=== PATIENT | female | born 1990 | race Caucasian/White ===

== ENCOUNTER 2016-12-23 10:52 | Emergency (ER) | payer BC ==
[2016-12-23 12:16] VITALS: BP 110/73
[2016-12-23] MEDS ORDERED: GI Cocktail Oral Solution 30 ML PO ONE (12:40)
[2016-12-23] MEDS ORDERED: Penicillin G Benzathine/Procaine 600-600 1.2 Millunits/2 ML Syringe IM ONE (12:41)
--- NOTE | 2016-12-23 12:42 | EDM.PDOC ---
ED HPI GENERAL MEDICAL PROBLEM - General Chief Complaint: ENT Problem Stated Complaint: cold [id number] Time Seen by Provider: 12/23/16 12:37 History Limitations: Reports: No Limitations - History of Present Illness INITIAL COMMENTS - FREE TEXT/NARRATIVE: Sore throat w/ bodyaches and fever X 2 days Onset Date: 12/20/16 Onset Time: 12:00 Duration: Day(s):, Getting Worse Location: Reports: Other (throat) Quality: Reports: Ache Severity: Moderate Context: Reports: Other (sore throat) Throat Pain Score (Numeric/FACES): 5 - Related Data Allergies Allergy/AdvReac Type Severity Reaction Status Date / Time No Known Allergies Allergy Verified 12/23/16 12:05 Home Meds: Home Meds Hydrocodone/Acetaminophen [Hydrocodon-Acetaminophn 10-325] 1 tab PO ASDIRECTED PRN 12/23/16 [History] Past Medical History HEENT History: Reports: None Cardiovascular History: Reports: None Respiratory History: Reports: None Gastrointestinal History: Reports: None Genitourinary History: Reports: Other (See Below) Other Genitourinary History: End Stage Intersitial Cystitis 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 Neurological History: Reports: None Psychiatric History: Reports: None Endocrine/Metabolic History: Reports: None Oncologic (Cancer) History: Reports: None Dermatologic History: Reports: None Social & Family History - Tobacco Use Smoking Status *Q: Never Smoker Second Hand Smoke Exposure: No - Caffeine Use Caffeine Use: Reports: None - Recreational Drug Use Recreational Drug Use: No ED ROS ENT - Review of Systems Review Of Systems: See Below Constitutional: Reports: No Symptoms HEENT: Reports: Throat Pain Respiratory: Reports: No Symptoms Cardiovascular: Reports: No Symptoms Endocrine: Reports: No Symptoms GI/Abdominal: Reports: No Symptoms : Reports: No Symptoms Musculoskeletal: Reports: Muscle Pain Skin: Reports: No Symptoms Neurological: Reports: No Symptoms Psychiatric: Reports: No Symptoms Hematologic/Lymphatic: Reports: No Symptoms Immunologic: Reports: No Symptoms ED EXAM, ENT - Physical Exam Exam: See Below Exam Limited By: No Limitations General Appearance: Alert, WD/WN, No Apparent Distress Eye Exam: Bilateral Eye: EOMI, PERRL Ears: Normal External Exam Nose: Normal Inspection Mouth/Throat: Tonsillar Erythema, Tonsillar Exudates Head: Atraumatic Neck: Normal Inspection, Lymphadenopathy (L), Lymphadenopathy (R) Respiratory/Chest: No Respiratory Distress, Lungs Clear Cardiovascular: Normal Peripheral Pulses, Regular Rate, Rhythm, No Edema GI/Abdominal: Normal Bowel Sounds, Soft, Non-Tender Back: Normal Inspection, Full Range of Motion Extremities: Normal Inspection, Normal Range of Motion, Non-Tender Neurological: Alert, Oriented, CN II-XII Intact Psychiatric: Normal Affect, Normal Mood Skin: Warm, Dry, Intact Lymphatic: Adenopathy (anterior cervical) Course - Vital Signs Last Recorded V/S: Last Vital Signs Temp 37.2 C 12/23/16 11:58 Pulse 88 12/23/16 11:58 Resp 16 12/23/16 11:58 BP 110/73 12/23/16 11:58 Pulse Ox 100 12/23/16 11:58 Departure - Departure Time of Disposition: 12:44 Disposition: Home, Self-Care 01 Condition: Good Clinical Impression: Tonsillitis - Discharge Information Forms: ED Department Discharge Additional Instructions: Rest and increase fluids Take Tylenol 500mg Q 4-6 hours for fever and bdyaches F/U w/ PCP
== END 2016-12-23 13:08 | disposition home or self-care (01) ==
LOC: DL.ED 10:52
DX: J03.90 Acute tonsillitis, unspecified (principal)
CPT/HCPCS: 87430; 96372; 99283; A9270; J0558

== ENCOUNTER 2018-02-13 18:30 | Emergency (ER) | payer MEDICARE, BC ==
[2018-02-13] MEDS ORDERED: LORazepam 1 MG Tab PO ONE (18:31)
[2018-02-13 18:53] VITALS: BP 120/90
[2018-02-13] MEDS ORDERED: HYDROmorphone 1 MG/ML Syringe IVPUSH ONE ×3 (19:24→22:50)
[2018-02-13] MEDS ORDERED: Ondansetron 4 MG/2 ML SDV IV ONE (19:24)
[2018-02-13 20:06] LABS: ANION GAP 14.9; CHLORIDE,CL 102 mmol/L (101-111); SODIUM,NA 136 mmol/L (135-145)
--- NOTE | 2018-02-13 20:45 | EDM.PDOC ---
"ED HPI GENERAL MEDICAL PROBLEM - General Chief Complaint: Back Pain or Injury Stated Complaint: BACK HURTS [id number] Time Seen by Provider: 02/13/18 19:05 Source of Information: Reports: Patient, RN History Limitations: Reports: No Limitations - History of Present Illness INITIAL COMMENTS - FREE TEXT/NARRATIVE: ED iwth c/o severe low back pain radiating down out side of both legs to ankles describes as sharp electric shock type and pelvic discomfort. Hx interstial cystitis and unable to determine if pain from that but notes feels different. hx 4 back surgeries in last 3 months with most recent on to remove pain pump. Stated pain pump initially placed to aid in alleviate pelvic floor pain. Complications with pump leaking and malfunctioning. Pain worsening this am around 11. Tried oxycodone at home and pain not eased. Had not tried to contact surgeons office today due to lateness in day when pain most severe at 4pm today. Patient ambulating with stooped gait and tearful. Denied any loss or change in sensation. Small BM today, pain present prior but increased after straining. Normal urinary frequency. . Denied fever or chills. 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 Musculoskeletal History: Reports: Back Pain, Chronic Neurological History: Reports: None Psychiatric History: Reports: None Endocrine/Metabolic History: Reports: None Hematologic History: Reports: Other (See Below) Other Hematologic History: autoimmune disorder Oncologic (Cancer) History: Reports: None Dermatologic History: Reports: None - Past Surgical History Musculoskeletal Surgical History: Reports: Other (See Below) Other Musculoskeletal Surgeries/Procedures:: 4 back surgeries Social & Family History - Family History Family Medical History: Noncontributory - Tobacco Use Smoking Status *Q: Never Smoker Second Hand Smoke Exposure: No - Caffeine Use Caffeine Use: Reports: None - Recreational Drug Use Recreational Drug Use: No ED ROS GENERAL - Review of Systems Review Of Systems: ROS reveals no pertinent complaints other than HPI. ED EXAM,LOWER BACK PAIN/INJURY - Physical Exam Exam: See Below Exam Limited By: No Limitations General Appearance: Alert, Moderate Distress Eye Exam: Bilateral Eye: EOMI Ears: Normal External Exam Nose: Normal Inspection Throat/Mouth: Normal Inspection Head: Atraumatic, Normocephalic Neck: Normal Inspection, Full Range of Motion Respiratory/Chest: No Respiratory Distress, Lungs Clear, Normal Breath Sounds Cardiovascular: Normal Peripheral Pulses, Regular Rate, Rhythm GI/Abdominal: Normal Bowel Sounds, Soft. No: Tender Back Exam: Paraspinal Tenderness (mild around left lateral incision), Vertebral Tenderness (surrounding surgical incision low lumbar) Extremities: Normal Inspection, Normal Range of Motion, Leg Pain (with weight bearing ). No: Pedal Edema, Pallor, Redness Neurological: Alert. No: Abnormal Sensation, Saddle Anesthesia Psychiatric: Anxious, Tearful Skin Exam: Warm, Dry, Normal Color (surigical incisions with kylah left lateral back and midline low lumbar intact no redness or warmth, very slight swelling to lmid left of lumbar midline incision. when lying on right side, ), Wound/Incision Course - Vital Signs Last Recorded V/S: Last Vital Signs Temp 99.0 F 02/13/18 18:50 Pulse 110 H 02/13/18 18:50 Resp 18 02/13/18 18:50 BP 120/90 02/13/18 18:50 Pulse Ox 99 02/13/18 18:50 - Orders/Labs/Meds Orders: Active Orders 24 hr Category Date Time Status CULTURE BLOOD [BC] Stat Lab 02/13/18 19:35 Received Labs: Laboratory Tests 02/13/18 02/13/18 02/13/18 Range/Units 19:35 19:35 19:35 WBC 10.4 H (5.0-10.0) 10^3/uL RBC 4.11 L (4.2-5.4) 10^6/uL Hgb 13.0 (12.0-16.0) g/dL Hct 38.9 (37.0-47.0) % MCV 94.6 (80-100) fL MCH 31.6 (27.0-34.0) pg MCHC 33.4 (33.0-35.0) g/dL Plt Count 408 (150-450) 10^3/uL Neut % (Auto) 58.2 (42.2-75.2) % Lymph % (Auto) 31.4 (20.5-50.1) % [place] % (Auto) 9.0 H (2-8) % Eos % (Auto) 1.2 (1.0-3.0) % Baso % (Auto) 0.2 (0.0-1.0) % Sodium 136 (135-145) mmol/L Potassium 3.9 (3.6-5.0) mmol/L Chloride 102 (101-111) mmol/L Carbon Dioxide 23.0 (21.0-31.0) mmol/L Anion Gap 14.9 BUN 14 (7-18) mg/dL Creatinine 0.6 (0.6-1.3) mg/dL Est Cr Clr Drug Dosing 144.94 mL/min Estimated GFR (MDRD) > 60 BUN/Creatinine Ratio 23.33 Glucose 107 H (74-105) mg/dL Lactic Acid 1.8 (0.5-2.2) mmol/L Calcium 9.4 (8.4-10.2) mg/dl Total Bilirubin 0.6 (0.2-1.0) mg/dL AST 19 (10-42) IU/L ALT 11 (10-60) IU/L Alkaline Phosphatase 54 (42-121) IU/L C-Reactive Protein (0.0-1.3) mg/dL Total Protein 7.8 (6.7-8.2) g/dl Albumin 4.5 (3.2-5.5) g/dl Globulin 3.3 Albumin/Globulin Ratio 1.36 HCG, Qual Negative Urine Color (YELLOW) Urine Appearance (CLEAR) Urine pH (5.0-9.0) Ur Specific [place] (1.005-1.030) Urine Protein (NEGATIVE) Urine Glucose (UA) (NEGATIVE) Urine Ketones (NEGATIVE) Urine Occult Blood (NEGATIVE) Urine Nitrite (NEGATIVE) Urine Bilirubin (NEGATIVE) Urine Urobilinogen (0.2-1.0) mg/dL Ur Leukocyte Esterase (NEGATIVE) Urine RBC /HPF Urine WBC (0-5/HPF) /HPF Ur Epithelial Cells /HPF Amorphous Sediment (0/HPF) /HPF Urine Bacteria (0-FEW/HPF) /HPF Urine Mucus /LPF 02/13/18 02/13/18 Range/Units 19:35 20:00 WBC (5.0-10.0) 10^3/uL RBC (4.2-5.4) 10^6/uL Hgb (12.0-16.0) g/dL Hct (37.0-47.0) % MCV (80-100) fL MCH (27.0-34.0) pg MCHC (33.0-35.0) g/dL Plt Count (150-450) 10^3/uL Neut % (Auto) (42.2-75.2) % Lymph % (Auto) (20.5-50.1) % [place] % (Auto) (2-8) % Eos % (Auto) (1.0-3.0) % Baso % (Auto) (0.0-1.0) % Sodium (135-145) mmol/L Potassium (3.6-5.0) mmol/L Chloride (101-111) mmol/L Carbon Dioxide (21.0-31.0) mmol/L Anion Gap BUN (7-18) mg/dL Creatinine (0.6-1.3) mg/dL Est Cr Clr Drug Dosing mL/min Estimated GFR (MDRD) BUN/Creatinine Ratio Glucose (74-105) mg/dL Lactic Acid (0.5-2.2) mmol/L Calcium (8.4-10.2) mg/dl Total Bilirubin (0.2-1.0) mg/dL AST (10-42) IU/L ALT (10-60) IU/L Alkaline Phosphatase (42-121) IU/L C-Reactive Protein 0.7 (0.0-1.3) mg/dL Total Protein (6.7-8.2) g/dl Albumin (3.2-5.5) g/dl Globulin Albumin/Globulin Ratio HCG, Qual Urine Color Yellow (YELLOW) Urine Appearance Slightly cloudy (CLEAR) Urine pH 6.0 (5.0-9.0) Ur Specific [place] 1.015 (1.005-1.030) Urine Protein Negative (NEGATIVE) Urine Glucose (UA) Negative (NEGATIVE) Urine Ketones Negative (NEGATIVE) Urine Occult Blood Negative (NEGATIVE) Urine Nitrite Negative (NEGATIVE) Urine Bilirubin Negative (NEGATIVE) Urine Urobilinogen 0.2 (0.2-1.0) mg/dL Ur Leukocyte Esterase Negative (NEGATIVE) Urine RBC 0-5 /HPF Urine WBC 0-5 (0-5/HPF) /HPF Ur Epithelial Cells Moderate H /HPF Amorphous Sediment Rare (0/HPF) /HPF Urine Bacteria Occasional (0-FEW/HPF) /HPF Urine Mucus Rare /LPF Meds: Medications Discontinued Medications Generic Name Dose Route Start Last Admin Trade Name Freq PRN Reason Stop Dose Admin Hydromorphone HCl 1 mg 02/13/18 19:24 02/13/18 19:38 Dilaudid IVPUSH 02/13/18 19:25 1 mg ONETIME ONE Administration Hydromorphone HCl 1 mg 02/13/18 20:08 02/13/18 20:12 Dilaudid IVPUSH 02/13/18 20:09 1 mg ONETIME ONE Administration Hydromorphone HCl 1 mg 02/13/18 22:50 02/13/18 22:56 Dilaudid IVPUSH 02/13/18 22:51 1 mg ONETIME ONE Administration Iopamidol 75 ml 02/13/18 20:50 02/13/18 21:35 Isovue-300 (61%) IVPUSH 02/13/18 20:51 75 ml ONETIME ONE Administration Lorazepam Confirm 02/13/18 22:52 02/13/18 22:56 Ativan Administered 02/13/18 22:53 Not Given Dose 2 mg .ROUTE .STK-MED ONE Ondansetron HCl 4 mg 02/13/18 19:24 02/13/18 19:38 Zofran IV 02/13/18 19:25 4 mg ONETIME ONE Administration - Radiology Interpretation Free Text/Narrative:: Name: JASON OLVERA Age: 27Years F Date: 02/13/2018 SSN: -- : 1990 Study: CT SPINE LUMBAR WO Requesting Physician: CANDELARIA REA Images: [id number] Addl Studies: Provided Clinical History: Contrast: Without Contrast Medium: Contrast Amount: Contrast Method: Page 1 of 2 EXAM: CT Lumbar Spine Without Intravenous Contrast EXAM DATE/TIME: 02/13/2018 9:03 PM CLINICAL HISTORY: 27 years old, female; Pain; Low back pain; Patient HX: Pt has pain down both legs after having pain management machine removed last week TECHNIQUE: Axial computed tomography images of the lumbar spine without intravenous contrast. All CT scans at this facility use at least one of these dose optimization techniques: automated exposure control; mA and/or kV adjustment per patient size (includes targeted exams where dose is matched to clinical indication); or iterative reconstruction. Coronal and sagittal reformatted images were created and reviewed. COMPARISON: No relevant prior studies available. FINDINGS: Vertebrae: Unremarkable. No acute fracture. Discs/spinal canal/neural foramina: Mild posterior disc bulges are seen at L4- L5 and L5-S1 without significant central canal stenosis or neuroforaminal narrowing. Soft tissues: A subcutaneous cavity is seen within the left posterior flank status post device removal. There is no significant associated fluid collection. An overlying skin staple is in place. A skin staple line is also present posteriorly at the lumbosacral region. Beneath this staple line, there is a rimenhancing subcutaneous fluid collection measuring 1.8 cm in diameter and 5.6 cm in length. IMPRESSION: 1. No evidence of acute lumbar injury. JASON OLVERA | Final Radiology Report CONFIDENTIALITY STATEMENT This report is intended only for use by the referring physician, and only in accordance with law. If you received this in error, call [phone]. Page 2 of 2 2. Staple lines are present posteriorly over the sacrum and within the left posterior flank. Beneath the vertical sacral staple line, there is a rim-enhancing fluid collection measuring 1.8 cm in diameter and 5.6 cm in length. Appearance is consistent with postoperative seroma versus developing abscess. 3. Mild posterior disc bulges at L4-L5 and L5-S1 without significant central canal stenosis or neuroforaminal narrowing. 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 Thank you for allowing us to participate in the care of your patient. Dictated and Authenticated by: Jean Shipley MD 02/13/2018 10:23 PM Central Time ([place] & [place] Name: JASON OLVERA Age: 27Years F Date: 02/13/2018 SSN: -- : 1990 Study: CT ABDOMEN/PELVIS W Requesting Physician: CANDELARIA REA Images: [id number] Addl Studies: Provided Clinical History: Contrast: With Contrast Medium: isovue 300 Contrast Amount: 75 mL Contrast Method: lt ac Page 1 of 2 Addendum created by Jean Shipley MD on 02/13/2018 10:23 PM Central Time ([place] & [place]) Results discussed with CANDELARIA Nicholson at 02/13/2018 10:23 PM TO[employer] C[employer]TER [employer]. Addendum created by Jean Shipley MD on 02/13/2018 10:16 PM Central Time ([place]) Addendum: There is an additional staple line within the posterior midline at the level of the sacrum. Beneath this staple line there is a rim-enhancing subcutaneous fluid collection measuring 1.8 cm in diameter and 5.6 cm superior-inferior. This may represent a postoperative fluid collection or abscess. Initial Report created on 02/13/2018 10:12 PM Central Time ([place] & [place]) EXAM: CT Abdomen and Pelvis With Intravenous Contrast EXAM DATE/TIME: 02/13/2018 9:03 PM CLINICAL HISTORY: 27 years old, female; Pain; Other: Pelvic; Patient HX: Pt had pain management removed from her lspine last week. Has lower abd/pelvic pain in back TECHNIQUE: Axial computed tomography images of the abdomen and pelvis with intravenous contrast. All CT scans at this facility use at least one of these dose optimization techniques: automated exposure control; mA and/or kV adjustment per patient size (includes targeted exams where dose is matched to clinical indication); or iterative reconstruction. Coronal and sagittal reformatted images were created and reviewed. CONTRAST: MAYJASON | Final Radiology Report CONFIDENTIALITY STATEMENT This report is intended only for use by the referring physician, and only in accordance with law. If you received this in error, call [phone]. Page 2 of 2 75 mL of isovue 300 administered intravenously. COMPARISON: No relevant prior studies available. FINDINGS: Lung bases: Unremarkable. No mass. No consolidation. ABDOMEN: Liver: Unremarkable. No mass. Gallbladder and bile ducts: The patient is status post cholecystectomy. No ductal dilation. Pancreas: Unremarkable. No mass. No ductal dilation. Spleen: Unremarkable. No splenomegaly. Adrenals: Unremarkable. No mass. Kidneys and ureters: Unremarkable. No solid mass. No hydronephrosis. Stomach and bowel: Unremarkable. No obstruction. No mucosal thickening. PELVIS: Appendix: No findings to suggest acute appendicitis. Bladder: Unremarkable. No mass. Reproductive: Unremarkable as visualized. ABDOMEN and PELVIS: Intraperitoneal space: Unremarkable. No free air. No significant fluid collection. Bones/joints: No acute fracture. No dislocation. Soft tissues: Air is seen within a subcutaneous cavity within the left flank, status post device removal. No significant surrounding fluid collection. A skin staple line is in place over the cavity. There is a small, fat-containing umbilical hernia. Vasculature: Unremarkable. No abdominal aortic aneurysm. Lymph nodes: Unremarkable. No enlarged lymph nodes. IMPRESSION: 1. Status post device removal within the left posterior flank without evidence of complication. 2. No evidence of acute disease in the abdomen or pelvis. Thank you for allowing us to participate in the care of your patient. Dictated and Authenticated by: Jean Shipley MD 02/13/2018 10:12 PM Central Time ([place] & [place]) - Re-Assessments/Exams Free Text/Narrative Re-Assessment/Exam: TC Dr Hobbs outside solar sales consultant Neurosurgeon for Dr Bell [facility]. Recommendation to follow with Dr. Bell on Sunday. Patient instructed to increase oxycodone up to 15mg 4 times daily until seen on Sunday, contact surgeons office in am. ativan 0.5 to 1mg every 4 hours as needed # 2 tablets. Patient agreeable with plan. Departure - Departure Time of Disposition: 22:33 Disposition: Home, Self-Care 01 Condition: Good Clinical Impression: History of back surgery Back pain Qualifiers: Back pain location: low back pain Chronicity: acute Back pain laterality: bilateral Sciatica presence: without sciatica Qualified Code(s): M54.5 - Low back pain - Discharge Information *PRESCRIPTION DRUG MONITORING PROGRAM REVIEWED*: Yes *COPY OF PRESCRIPTION DRUG MONITORING REPORT IN PATIENT CRISSY: No Instructions: Pain Medicine Instructions, [id number] Forms: ED Department Discharge Additional Instructions: Follow up in [facility] on Sunday Contact Office in am Increase Oxycodone 15mg 4 times daily as needed for pain Miralax one capful daily increase fluid intake - My Orders Last 24 Hours: My Active Orders 02/13/18 19:35 CULTURE BLOOD [BC] Stat - Assessment/Plan Last 24 Hours: My Active Orders 02/13/18 19:35 CULTURE BLOOD [BC] Stat"
[2018-02-13] MEDS ORDERED: Iopamidol 612 MG/ML 75 ML Bottle IVPUSH ONE (20:50)
[2018-02-13] MEDS ORDERED: LORazepam 1 MG Tab ONE (22:52)
== END 2018-02-13 23:04 | disposition home or self-care (01) ==
LOC: DL.ED 18:30
DX: M54.5 Low back pain (principal)
CPT/HCPCS: 36415; 72131; 74177; 80053; 81001; 83605; 84703; 85025; 86140; 87040; 96374; 96375; 96376; 99284; A9270-GY; J1170; J2405; Q9967

== ENCOUNTER 2019-05-26 11:26 | Emergency (ER) | payer MEDICARE, BC ==
[2019-05-26 11:47] VITALS: BP 114/58; PULSE 98
[2019-05-26] MEDS ORDERED: Sodium Chloride 0.9% 1,000 ML IV ONE (12:31)
[2019-05-26] MEDS ORDERED: HYDROmorphone 1 MG/ML Syringe IVPUSH ONE (12:31)
[2019-05-26] MEDS ORDERED: Ondansetron 4 MG/2 ML SDV IV ONE (12:48)
[2019-05-26] MEDS: Sodium Chloride 0.9% 10 ML Syringe FLUSH PRN ×3 (12:56→14:07)
[2019-05-26 13:11] LABS: CHLORIDE,CL 108 mmol/L (101-111); SODIUM,NA 140 mmol/L (135-145)
[2019-05-26] MEDS ORDERED: fentaNYL 100 MCG/2 ML SDV IVPUSH ONE (13:56)
--- NOTE | 2019-05-26 14:28 | EDM.PDOC ---
ED HPI GENERAL MEDICAL PROBLEM - General Chief Complaint: Genitourinary Problem Stated Complaint: BLADDER FLARE UP Time Seen by Provider: 05/26/19 12:00 Source of Information: Reports: Patient, Family, RN, RN Notes Reviewed History Limitations: Reports: No Limitations - History of Present Illness INITIAL COMMENTS - FREE TEXT/NARRATIVE: patient presents to ER with complaint of bladder pain. Patient states she has a history of interstitial cystitis. Patient states she has been doctoring with this for the past 16 years. Patient states she sees her primary care provider, has Percocet, and oxycodone 15 IR, but these things are not cutting the pain at this time. Patient states she has had a pain pump in the past that infiltrated and caused an osteomyelitis in her back. states she does have cysts inside the bladder, and when they rupture she has severe pain. Her primary care provider was not in the office today. patient rates the pain 9/10. Onset: Gradual Duration: Constant, Getting Worse Location: Reports: Abdomen Bladder Pain Score (Numeric/FACES): 9 - Related Data Allergies Allergy/AdvReac Type Severity Reaction Status Date / Time No Known Allergies Allergy Verified 02/13/18 18:49 Home Meds: Home Meds oxyCODONE HCl [Oxycodone HCl] 15 mg PO QID PRN 02/13/18 [History] hydrOXYzine HCL [hydrOXYzine] 25 mg PO DAILY 05/26/19 [History] Past Medical History HEENT History: Reports: None Cardiovascular History: Reports: None Respiratory History: Reports: None Gastrointestinal History: Reports: None Genitourinary History: Reports: Other (See Below) Other Genitourinary History: End Stage Intersitial Cystitis FINE PATCHER History: Reports: Endometriosis, , Other (See Below) Other FINE PATCHER History: endometriosis is well controlled. Musculoskeletal History: Reports: Back Pain, Chronic Neurological History: Reports: None Psychiatric History: Reports: None Endocrine/Metabolic History: Reports: None Hematologic History: Reports: Other (See Below) Other Hematologic History: autoimmune disorder Oncologic (Cancer) History: Reports: None Dermatologic History: Reports: None - Past Surgical History Musculoskeletal Surgical History: Reports: Other (See Below) Other Musculoskeletal Surgeries/Procedures:: 4 back surgeries, 2018 spinal infection Social & Family History - Family History Family Medical History: Noncontributory - Tobacco Use Smoking Status *Q: Never Smoker - Caffeine Use Caffeine Use: Reports: None - Recreational Drug Use Recreational Drug Use: No ED ROS GENERAL - Review of Systems Review Of Systems: Comprehensive ROS is negative, except as noted in HPI. ED EXAM, RENAL/ - Physical Exam Exam: See Below Exam Limited By: No Limitations General Appearance: Alert, WD/WN, Anxious, Moderate Distress Eye Exam: Bilateral Eye: EOMI, Normal Inspection, PERRL (5, brisk) Ears: Normal External Exam, Hearing Grossly Normal Nose: Normal Inspection Throat/Mouth: Normal Inspection, Normal Voice, No Airway Compromise Head: Atraumatic, Normocephalic Neck: Normal Inspection, Supple, Non-Tender, Full Range of Motion Respiratory/Chest: No Respiratory Distress, Lungs Clear, Normal Breath Sounds, No Accessory Muscle Use, Chest Non-Tender Cardiovascular: Normal Peripheral Pulses, Regular Rate, Rhythm, No Edema, No Gallop, No JVD, No Murmur, No Rub GI/Abdominal: Normal Bowel Sounds, Soft, Tender (Female) Exam: Deferred Rectal (Female) Exam: Deferred Back Exam: Normal Inspection, Decreased Range of Motion, Other (chronic back pain) Extremities: Normal Inspection, Normal Range of Motion, Non-Tender, Normal Capillary Refill, No Pedal Edema Neurological: Alert, Oriented, CN II-XII Intact, Normal Cognition, Normal Gait, Normal Reflexes, No Motor/Sensory Deficits Psychiatric: Anxious, Tearful Skin Exam: Warm, Dry, Intact, Normal Color, No Rash Lymphatic: No Adenopathy Course - Vital Signs Last Recorded V/S: Last Vital Signs Temp 99.6 F 05/26/19 11:40 Pulse 98 05/26/19 11:40 Resp 22 H 05/26/19 11:40 BP 114/58 L 05/26/19 11:40 Pulse Ox 100 05/26/19 11:40 - Orders/Labs/Meds Labs: Laboratory Tests 05/26/19 05/26/19 05/26/19 Range/Units 12:40 12:40 12:44 WBC 9.4 (5.0-10.0) 10^3/uL RBC 4.12 L (4.2-5.4) 10^6/uL Hgb 13.4 (12.0-16.0) g/dL Hct 39.4 (37.0-47.0) % MCV 95.6 (80-100) fL MCH 32.5 (27.0-34.0) pg MCHC 34.0 (33.0-35.0) g/dL Plt Count 350 (150-450) 10^3/uL Neut % (Auto) 87.0 H (42.2-75.2) % Lymph % (Auto) 10.0 L (20.5-50.1) % [place] % (Auto) 2.9 (2-8) % Eos % (Auto) 0.0 L (1.0-3.0) % Baso % (Auto) 0.1 (0.0-1.0) % Sodium 140 (135-145) mmol/L Potassium 4.0 (3.6-5.0) mmol/L Chloride 108 (101-111) mmol/L Carbon Dioxide 20.0 L (21.0-31.0) mmol/L Anion Gap 16.0 BUN 11 (7-18) mg/dL Creatinine 0.6 (0.6-1.3) mg/dL Est Cr Clr Drug Dosing 146.28 mL/min Estimated GFR (MDRD) > 60 BUN/Creatinine Ratio 18.33 Glucose 106 H (74-105) mg/dL Calcium 9.3 (8.4-10.2) mg/dl Total Bilirubin 0.8 (0.2-1.0) mg/dL AST 22 (10-42) IU/L ALT 11 (10-60) IU/L Alkaline Phosphatase 36 L (42-121) IU/L Total Protein 7.5 (6.7-8.2) g/dl Albumin 4.5 (3.2-5.5) g/dl Globulin 3.0 Albumin/Globulin Ratio 1.50 Urine Color Yellow (YELLOW) Urine Appearance Clear (CLEAR) Urine pH 5.5 (5.0-9.0) Ur Specific [place] 1.010 (1.005-1.030) Urine Protein Negative (NEGATIVE) Urine Glucose (UA) Negative (NEGATIVE) Urine Ketones Negative (NEGATIVE) Urine Occult Blood Negative (NEGATIVE) Urine Nitrite Negative (NEGATIVE) Urine Bilirubin Negative (NEGATIVE) Urine Urobilinogen 0.2 (0.2-1.0) mg/dL Ur Leukocyte Esterase Negative (NEGATIVE) Meds: Medications Discontinued Medications Generic Name Dose Route Start Last Admin Trade Name Freq PRN Reason Stop Dose Admin Fentanyl 100 mcg 05/26/19 13:56 05/26/19 14:06 Sublimaze IVPUSH 05/26/19 13:57 100 mcg ONETIME ONE Administration Fentanyl 75 mcg 05/26/19 15:15 05/26/19 15:27 Duragesic TRDERM 75 mcg Q72H JOSESITO Administration Hydromorphone HCl 1 mg 05/26/19 12:31 05/26/19 12:54 Dilaudid IVPUSH 05/26/19 12:32 1 mg ONETIME ONE Administration Sodium Chloride 1,000 mls @ 999 mls/hr 05/26/19 12:31 05/26/19 12:54 Normal Saline IV 05/26/19 13:31 999 mls/hr .BOLUS ONE Administration Ondansetron HCl 4 mg 05/26/19 12:48 05/26/19 12:54 Zofran IV 05/26/19 12:49 4 mg ONETIME ONE Administration Sodium Chloride 10 ml 05/26/19 12:31 05/26/19 14:07 Saline Flush FLUSH 10 ml ASDIRECTED PRN Administration Keep Vein Open - Re-Assessments/Exams Free Text/Narrative Re-Assessment/Exam: 05/26/19 15:10 discussed patient case with patient's primary care provider, Aviva Owen NP. Agreed that I would prescribe a fentanyl patch today and to help the patient get through the night, and the patient will follow up with Aviva tomorrow. Departure - Departure Time of Disposition: 15:11 Disposition: Home, Self-Care 01 Condition: Fair Clinical Impression: Interstitial cystitis (chronic) without hematuria Chronic back pain Qualifiers: Back pain location: low back pain Back pain laterality: unspecified Sciatica presence: unspecified whether sciatica present Qualified Code(s): M54.5 - Low back pain - Discharge Information *PRESCRIPTION DRUG MONITORING PROGRAM REVIEWED*: No *COPY OF PRESCRIPTION DRUG MONITORING REPORT IN PATIENT CRISSY: No Instructions: Pain Medicine Instructions, [id number] Referrals: Aviav Gates NP [Primary Care Provider] - Forms: ED Department Discharge Additional Instructions: Remove fentanyl patch in 72 hours Follow-up with Aviva Owen NP tomorrow Sepsis Event Note - Evaluation Sepsis Screening Result: No Definite Risk - Focused Exam Date Exam was Performed: 06/04/19 Time Exam was Performed: 17:48
[2019-05-26] MEDS ORDERED: fentaNYL 75 MCG/HR Transdermal Patch TRDERM SCH (15:15)
== END 2019-05-26 15:35 | disposition home or self-care (01) ==
LOC: DL.ED 11:26
DX: N30.10 Interstitial cystitis (chronic) without hematuria (principal); M54.5 Low back pain
CPT/HCPCS: 36415; 80053; 81003; 85025; 96361; 96374; 96375; 99283; 99284; A9270; J1170; J2405; J3010; J7030

== ENCOUNTER 2019-06-27 13:36 | Emergency (ER) | payer MEDICARE, BC ==
--- NOTE | 2019-06-27 13:49 | EDM.PDOC ---
ED HPI GENERAL MEDICAL PROBLEM - General Chief Complaint: ENT Problem Stated Complaint: NASAL INFECTION Time Seen by Provider: 06/27/19 13:49 Source of Information: Reports: Patient, RN, RN Notes Reviewed History Limitations: Reports: No Limitations - History of Present Illness INITIAL COMMENTS - FREE TEXT/NARRATIVE: Pt presents to ER with c/o swelling in her nose with feverish sensation, and burning in the throat with tightness in her neck. The pt became very anxious due to her PMHx of complicated medical problems. She states that she went to clinic and feels that the provider did not take her concerns seriously, and "blew her off". Onset: Today Duration: Constant Location: Reports: Head, Face Quality: Reports: Burning, Pressure Severity: Moderate Improves with: Reports: None Worsens with: Reports: None Context: Reports: Sick Contact (possible) Associated Symptoms: Reports: No Other Symptoms - Related Data Allergies Allergy/AdvReac Type Severity Reaction Status Date / Time No Known Allergies Allergy Verified 06/27/19 13:56 Home Meds: Home Meds oxyCODONE HCl [Oxycodone HCl] 15 mg PO QID PRN 02/13/18 [History] hydrOXYzine HCL [hydrOXYzine] 25 mg PO DAILY 05/26/19 [History] fentaNYL [Duragesic] 75 mcg TD Q72H 06/27/19 [History] Past Medical History HEENT History: Reports: None Cardiovascular History: Reports: None Respiratory History: Reports: None Gastrointestinal History: Reports: None Genitourinary History: Reports: Other (See Below) Other Genitourinary History: End Stage Intersitial Cystitis 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 Musculoskeletal History: Reports: Back Pain, Chronic Neurological History: Reports: None Psychiatric History: Reports: None Endocrine/Metabolic History: Reports: None Hematologic History: Reports: Other (See Below) Other Hematologic History: autoimmune disorder Oncologic (Cancer) History: Reports: None Dermatologic History: Reports: None - Past Surgical History Musculoskeletal Surgical History: Reports: Other (See Below) Other Musculoskeletal Surgeries/Procedures:: 4 back surgeries, 2018 spinal infection Social & Family History - Family History Family Medical History: Noncontributory - Caffeine Use Caffeine Use: Reports: None - Living Situation & Occupation Living situation: Reports: , with Family ED ROS ENT - Review of Systems Review Of Systems: Comprehensive ROS is negative, except as noted in HPI. ED EXAM, ENT - Physical Exam Exam: See Below Exam Limited By: No Limitations General Appearance: Alert, WD/WN, No Apparent Distress, Anxious Eye Exam: Bilateral Eye: EOMI, Normal Inspection Ears: Normal External Exam, Normal Canal, Hearing Grossly Normal, Normal TMs Nose: No Blood, Nasal Discharge (Mild clear nasal mucus), Injected Turbinates Mouth/Throat: Normal Gums, Normal Lips, Normal Oropharynx, Normal Teeth, Other ( Postnasal drip) Head: Atraumatic, Normocephalic Neck: Normal Inspection, Supple, Non-Tender, Full Range of Motion. No: Lymphadenopathy (L), Lymphadenopathy (R) Respiratory/Chest: No Respiratory Distress, Lungs Clear, Normal Breath Sounds, No Accessory Muscle Use, Chest Non-Tender Cardiovascular: Regular Rate, Rhythm, Tachycardia Neurological: Alert, Oriented, CN II-XII Intact, Normal Cognition, Normal Gait, No Motor/Sensory Deficits Psychiatric: Anxious Skin: Warm, Dry, Intact, Normal Color, No Rash Course - Vital Signs Last Recorded V/S: Last Vital Signs Temp 99.7 F 06/27/19 13:51 Pulse 114 H 06/27/19 13:51 Resp 16 06/27/19 13:51 BP 125/76 06/27/19 13:51 Pulse Ox 99 06/27/19 13:51 - Orders/Labs/Meds Orders: Active Orders 24 hr Category Date Time Status Max Facial Sinus wo Cont [CT] Stat Exams 06/27/19 13:57 Taken Labs: Laboratory Tests 06/27/19 06/27/19 06/27/19 Range/Units 14:05 14:05 14:05 WBC 5.4 (5.0-10.0) 10^3/uL RBC 4.01 L (4.2-5.4) 10^6/uL Hgb 12.9 (12.0-16.0) g/dL Hct 38.3 (37.0-47.0) % MCV 95.5 (80-100) fL MCH 32.2 (27.0-34.0) pg MCHC 33.7 (33.0-35.0) g/dL Plt Count 316 (150-450) 10^3/uL Neut % (Auto) 47.5 (42.2-75.2) % Lymph % (Auto) 45.2 (20.5-50.1) % [place] % (Auto) 5.0 (2-8) % Eos % (Auto) 1.9 (1.0-3.0) % Baso % (Auto) 0.4 (0.0-1.0) % C-Reactive Protein 0.5 (0.0-1.3) mg/dL HCG, Qual Negative - Radiology Interpretation Free Text/Narrative:: CT Max/Facial/Sinus: no acute findings, see Rad. report. Departure - Departure Time of Disposition: 14:50 Disposition: Home, Self-Care 01 Condition: Good Clinical Impression: Acute rhinosinusitis - Discharge Information *PRESCRIPTION DRUG MONITORING PROGRAM REVIEWED*: Not Applicable *COPY OF PRESCRIPTION DRUG MONITORING REPORT IN PATIENT CRISSY: Not Applicable Instructions: Upper Respiratory Infection, Adult Forms: ED Department Discharge Additional Instructions: Use over the counter Afrin Nasal [place], and Claritin (Loratadine) D-24 Hour. Follow directions on package/label for dosing and precautions. Frequent saltwater gargles until improved. Use a cool mist humidifier. Follow up in clinic if not improving in a week or so as expected. Sepsis Event Note - Focused Exam Vital Signs: Vital Signs Temp Pulse Resp BP Pulse Ox 06/27/19 13:51 99.7 F 114 H 16 125/76 99 Date Exam was Performed: 06/27/19 Time Exam was Performed: 14:56 - My Orders Last 24 Hours: My Active Orders 06/27/19 13:57 Max Facial Sinus wo Cont [CT] Stat - Assessment/Plan Last 24 Hours: My Active Orders 06/27/19 13:57 Max Facial Sinus wo Cont [CT] Stat
[2019-06-27 13:56] VITALS: BP 125/76; PULSE 114
== END 2019-06-27 15:01 | disposition home or self-care (01) ==
LOC: DL.ED 13:36
DX: J01.90 Acute sinusitis, unspecified (principal)
CPT/HCPCS: 36415; 70486; 84703; 85025; 86140; 99284-25

== ENCOUNTER 2020-01-19 13:41 | Emergency (ER) | payer MEDICARE, BC ==
[2020-01-19 13:57] VITALS: BP 120/90; PULSE 115
[2020-01-19] MEDS ORDERED: Ondansetron 4 MG Tab.DIS PO ONE (13:59)
--- NOTE | 2020-01-19 14:14 | EDM.PDOC ---
ED HPI GENERAL MEDICAL PROBLEM - General Chief Complaint: Genitourinary Problem Stated Complaint: SPINAL PROBLEMS NAUSEA Time Seen by Provider: 01/19/20 13:55 Source of Information: Reports: Patient History Limitations: Reports: No Limitations - History of Present Illness INITIAL COMMENTS - FREE TEXT/NARRATIVE: This 29 yo female reports to the ED with increased back pain and nausea. The patient reports she has been dealing with chronic back pain and aches for which she has had numerous surgeries (>30), but continues to be in pain. The patient reports her Fentanyl patch fell off yesterday and the patient has not been able to reapply it. Onset: Today Duration: Constant Location: Reports: Back Quality: Reports: Ache, Stabbing Severity: Severe Improves with: Reports: None Worsens with: Reports: None Context: Reports: Other Associated Symptoms: Reports: No Other Symptoms Lower Abdomen Pain Score (Numeric/FACES): 8 - Related Data Allergies Allergy/AdvReac Type Severity Reaction Status Date / Time No Known Allergies Allergy Verified 01/19/20 13:57 Home Meds: Home Meds hydrOXYzine HCL [hydrOXYzine] 25 mg PO DAILY 05/26/19 [History] fentaNYL [Duragesic] 75 mcg TD Q72H 06/27/19 [History] Hydrocodone/Acetaminophen [Hydrocodone-Acetamin 10-325 mg] 1.5 tab PO Q6H PRN 01/19/20 [History] Levonorgestrel/Ethin.estradiol [[place]illow-28 Tablet] 1 tab PO DAILY 01/19/20 [History] Past Medical History HEENT History: Reports: None Cardiovascular History: Reports: None Respiratory History: Reports: None Gastrointestinal History: Reports: None Genitourinary History: Reports: Other (See Below) Other Genitourinary History: End Stage Intersitial Cystitis 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 Musculoskeletal History: Reports: Back Pain, Chronic Neurological History: Reports: None Psychiatric History: Reports: None Endocrine/Metabolic History: Reports: None Hematologic History: Reports: Other (See Below) Other Hematologic History: autoimmune disorder Oncologic (Cancer) History: Reports: None Dermatologic History: Reports: None - Past Surgical History Musculoskeletal Surgical History: Reports: Other (See Below) Other Musculoskeletal Surgeries/Procedures:: 4 back surgeries, 2018 spinal infection Social & Family History - Family History Family Medical History: Noncontributory - Tobacco Use Smoking Status *Q: Never Smoker - Caffeine Use Caffeine Use: Reports: None - Recreational Drug Use Recreational Drug Use: No - Living Situation & Occupation Living situation: Reports: , with Family ED ROS GENERAL - Review of Systems Review Of Systems: Comprehensive ROS is negative, except as noted in HPI. ED EXAM, GENERAL - Physical Exam Exam: See Below Exam Limited By: No Limitations General Appearance: Alert, WD/WN, Moderate Distress Eye Exam: Bilateral Eye: EOMI Ears: Normal External Exam, Normal Canal, Hearing Grossly Normal, Normal TMs Nose: Normal Inspection, Normal Mucosa, No Blood Throat/Mouth: Normal Inspection, Normal Lips, Normal Teeth, Normal Gums, Normal Oropharynx, Normal Voice, No Airway Compromise Head: Atraumatic, Normocephalic Neck: Normal Inspection, Supple, Non-Tender, Full Range of Motion Respiratory/Chest: No Respiratory Distress, Lungs Clear, Normal Breath Sounds, No Accessory Muscle Use, Chest Non-Tender Cardiovascular: Normal Peripheral Pulses, Regular Rate, Rhythm, No Edema, No Gallop, No JVD, No Murmur, No Rub GI/Abdominal: Normal Bowel Sounds, Soft, Non-Tender, No Organomegaly, No Distention, No Abnormal Bruit, No Mass (Female) Exam: Deferred Rectal (Female) Exam: Deferred Back Exam: Paraspinal Tenderness, Vertebral Tenderness Extremities: Normal Inspection, Normal Range of Motion, Non-Tender, Normal Capillary Refill, No Pedal Edema Neurological: Alert, Oriented, CN II-XII Intact, Normal Cognition, Normal Gait, Normal Reflexes, No Motor/Sensory Deficits Psychiatric: Normal Affect, Normal Mood Skin Exam: Warm, Dry, Intact, Normal Color, No Rash Lymphatic: No Adenopathy Course - Vital Signs Last Recorded V/S: Last Vital Signs Temp 37.3 C 01/19/20 13:52 Pulse 115 H 01/19/20 13:52 Resp 16 01/19/20 13:52 BP 120/90 01/19/20 13:52 Pulse Ox 99 01/19/20 13:52 - Orders/Labs/Meds Orders: Active Orders 24 hr Category Date Time Status fentaNYL [Duragesic] Med 01/19/20 14:15 Ordered 75 mcg TRDERM Q72H Medication Orders Fentanyl (Duragesic) 75 mcg TRDERM Q72H [facility] Meds: Medications Generic Name Dose Route Start Last Admin Trade Name Freq PRN Reason Stop Dose Admin Fentanyl 75 mcg 01/19/20 14:15 Duragesic TRDERM Q72H [facility] Discontinued Medications Generic Name Dose Route Start Last Admin Trade Name Freq PRN Reason Stop Dose Admin Ondansetron HCl 4 mg 01/19/20 13:59 Zofran Odt PO 01/19/20 14:00 ONETIME ONE Departure - Departure Time of Disposition: 14:16 Disposition: Home, Self-Care 01 Condition: Fair Clinical Impression: Chronic back pain Qualifiers: Back pain location: low back pain Back pain laterality: unspecified Sciatica presence: unspecified whether sciatica present Qualified Code(s): M54.5 - Low back pain - Discharge Information Instructions: Chronic Back Pain, [id number] Care Plan Goals: The patient was advised of the examination results during the visit. The patient was given an oral dose of Zofran ODT (4 mg) and her Fentanyl patch was replaced. If the patient has any additional symptoms or concerns, the patient should either return to the emergency department or visit her primary care facility. Sepsis Event Note (ED) - Evaluation Sepsis Screening Result: No Definite Risk - Focused Exam Vital Signs: Vital Signs Temp Pulse Resp BP Pulse Ox 01/19/20 13:52 37.3 C 115 H 16 120/90 99 - My Orders Last 24 Hours: My Active Orders 01/19/20 14:15 fentaNYL [Duragesic] 75 mcg TRDERM Q72H - Assessment/Plan Last 24 Hours: My Active Orders 01/19/20 14:15 fentaNYL [Duragesic] 75 mcg TRDERM Q72H
[2020-01-19] MEDS ORDERED: fentaNYL 75 MCG/HR Transdermal Patch TRDERM SCH (14:15)
== END 2020-01-19 14:23 | disposition home or self-care (01) ==
LOC: DL.ED 13:41
DX: M54.5 Low back pain (principal); G89.29 Other chronic pain; R11.0 Nausea
CPT/HCPCS: 99283; A9270-GY

== ENCOUNTER 2020-06-28 12:08 | Emergency (ER) | payer MEDICARE, BC ==
[2020-06-28 12:34] VITALS: BP 115/79; PULSE 133
[2020-06-28] MEDS ORDERED: HYDROmorphone 1 MG/ML Syringe IM ONE (12:59)
[2020-06-28] MEDS ORDERED: Ondansetron 4 MG Tab.DIS PO ONE (12:59)
[2020-06-28] MEDS ORDERED: fentaNYL 50 MCG/HR Transdermal Patch TRDERM SCH (13:00)
--- NOTE | 2020-06-28 13:06 | EDM.PDOC ---
ED HPI GENERAL MEDICAL PROBLEM - General Chief Complaint: General Stated Complaint: SPINE DAMMAGE BLADDER DISEASE VOMMITING Time Seen by Provider: 06/28/20 12:45 Source of Information: Reports: Patient, Old Records, RN, RN Notes Reviewed History Limitations: Reports: No Limitations - History of Present Illness INITIAL COMMENTS - FREE TEXT/NARRATIVE: Pt presents to ER with report that her Fentanyl patch fell off her arm yesterday, and now she has uncontrolled pain and withdrawals. Pt admits to nausea. She was on her last patch which is due to be refilled in 3 days, so this was her last patch. Denies any new injury, fever, or other complaints. Onset Date: 06/27/20 Location: Reports: Generalized Quality: Reports: Same as Previous Episode Severity: Severe Improves with: Reports: None Worsens with: Reports: None Associated Symptoms: Reports: No Other Symptoms Bladder Pain Score (Numeric/FACES): 8 - Related Data Allergies Allergy/AdvReac Type Severity Reaction Status Date / Time No Known Allergies Allergy Verified 06/28/20 12:36 Home Meds: Home Meds hydrOXYzine HCL [hydrOXYzine] 25 mg PO DAILY 05/26/19 [History] fentaNYL [Duragesic] 75 mcg TD Q72H 06/27/19 [History] Hydrocodone/Acetaminophen [Hydrocodone-Acetamin 10-325 mg] 1.5 tab PO Q6H PRN 01/19/20 [History] Levonorgestrel/Ethin.estradiol [Lillow-28 Tablet] 1 tab PO DAILY 01/19/20 [History] Past Medical History HEENT History: Reports: None Cardiovascular History: Reports: None Respiratory History: Reports: None Gastrointestinal History: Reports: None Genitourinary History: Reports: Other (See Below) Other Genitourinary History: End Stage Intersitial Cystitis 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 Musculoskeletal History: Reports: Back Pain, Chronic Neurological History: Reports: None Psychiatric History: Reports: None Endocrine/Metabolic History: Reports: None Hematologic History: Reports: Other (See Below) Other Hematologic History: autoimmune disorder Oncologic (Cancer) History: Reports: None Dermatologic History: Reports: None - Past Surgical History Musculoskeletal Surgical History: Reports: Other (See Below) Other Musculoskeletal Surgeries/Procedures:: 4 back surgeries, 2018 spinal infection Social & Family History - Family History Family Medical History: No Pertinent Family History - Tobacco Use Tobacco Use Status *Q: Never Tobacco User - Caffeine Use Caffeine Use: Reports: None - Recreational Drug Use Recreational Drug Use: No - Living Situation & Occupation Living situation: Reports: , with Family ED ROS GENERAL - Review of Systems Review Of Systems: Comprehensive ROS is negative, except as noted in HPI. ED EXAM, GENERAL - Physical Exam Exam: See Below Exam Limited By: No Limitations General Appearance: Alert, No Apparent Distress, Mild Distress Eye Exam: Bilateral Eye: EOMI, Normal Inspection, PERRL Nose: No Blood, Nasal Drainage (with inflammed nasal mucosa) Throat/Mouth: Normal Inspection, Normal Lips, Normal Teeth, Normal Gums, Normal Oropharynx, Normal Voice, No Airway Compromise Head: Atraumatic, Normocephalic Neck: Normal Inspection, Supple, Non-Tender, Full Range of Motion. No: Lymphadenopathy (L), Lymphadenopathy (R) Respiratory/Chest: No Respiratory Distress, Lungs Clear, Normal Breath Sounds, No Accessory Muscle Use, Chest Non-Tender Cardiovascular: Regular Rate, Rhythm, No Edema, Tachycardia GI/Abdominal: Normal Bowel Sounds, Soft, Non-Tender Back Exam: Paraspinal Tenderness (generalized). No: CVA Tenderness (L), CVA Tenderness (R) Extremities: Normal Inspection, Normal Range of Motion, Non-Tender, Normal Capillary Refill, No Pedal Edema Neurological: Alert, Oriented, CN II-XII Intact, Normal Cognition, Normal Gait, No Motor/Sensory Deficits Psychiatric: Anxious, Tearful Skin Exam: Warm, Dry, Intact, Normal Color, No Rash Course - Vital Signs Last Recorded V/S: Last Vital Signs Temp 99 F 06/28/20 12:33 Pulse 133 H 06/28/20 12:33 Resp 16 06/28/20 12:33 BP 115/79 06/28/20 12:33 Pulse Ox 100 06/28/20 12:33 - Orders/Labs/Meds Orders: Active Orders 24 hr Category Date Time Status HYDROmorphone [Dilaudid] Med 06/28/20 12:59 Once 1 mg IM ONETIME ONE Ondansetron [Zofran ODT] Med 06/28/20 12:59 Once 4 mg PO ONETIME ONE fentaNYL [Duragesic] Med 06/28/20 13:00 Ordered 50 mcg TRDERM Q72H Departure - Departure Time of Disposition: 13:07 Disposition: Home, Self-Care 01 Condition: Good Clinical Impression: Withdrawal from opioids, Has run out of medications - Discharge Information *PRESCRIPTION DRUG MONITORING PROGRAM REVIEWED*: No *COPY OF PRESCRIPTION DRUG MONITORING REPORT IN PATIENT CRISSY: No Instructions: Fentanyl skin patch, Opioid Withdrawal Additional Instructions: Follow up in clinic with Dr. Kumar for medication management as planned. Sepsis Event Note (ED) - Evaluation Sepsis Screening Result: No Definite Risk - Focused Exam Vital Signs: Vital Signs Temp Pulse Resp BP Pulse Ox 06/28/20 12:33 99 F 133 H 16 115/79 100 - My Orders Last 24 Hours: My Active Orders 06/28/20 12:59 HYDROmorphone [Dilaudid] 1 mg IM ONETIME ONE Ondansetron [Zofran ODT] 4 mg PO ONETIME ONE 06/28/20 13:00 fentaNYL [Duragesic] 50 mcg TRDERM Q72H - Assessment/Plan Last 24 Hours: My Active Orders 06/28/20 12:59 HYDROmorphone [Dilaudid] 1 mg IM ONETIME ONE Ondansetron [Zofran ODT] 4 mg PO ONETIME ONE 06/28/20 13:00 fentaNYL [Duragesic] 50 mcg TRDERM Q72H
== END 2020-06-28 13:35 | disposition home or self-care (01) ==
LOC: DL.ED 12:08
DX: F11.23 Opioid dependence with withdrawal (principal)
CPT/HCPCS: 96372; 99283; A9270; J1170

== ENCOUNTER 2020-09-08 11:59 | Emergency (ER) | payer MEDICARE, BC ==
[2020-09-08 12:15] VITALS: BP 95/60; PULSE 91
--- NOTE | 2020-09-08 12:25 | EDM.PDOC ---
<Rich Ly Wayne - Last Filed: 09/08/20 13:22> ED HPI GENERAL MEDICAL PROBLEM - General Chief Complaint: ENT Problem Stated Complaint: From Clinic Time Seen by Provider: 09/08/20 12:19 Source of Information: Reports: Patient History Limitations: Reports: No Limitations - History of Present Illness INITIAL COMMENTS - FREE TEXT/NARRATIVE: 30 y/o F c/o nasal congestion and sore throat x 3 weeks. Pt was seeing her primary provider at the clinic today and her provider had her sent over here for concerns of sepsis. Pt states she has tried several different nasal sprays with no releif in congestion. She also has a hx of nasal polyps and has seen ENT for them. Pt states the last time she saw ENT a month ago the doctor "wrote her off before he even came in to see her and diagnosed her with a viral infection. Pt has end stage interstitial cystitis and sees a provider in [place] for palliative care and pain management. She reports inability to sleep for three nights due to severe pain in her back and bladder. She denies fever, cough, cp, db, abd pn, pevlic pn, extremity pn. Duration: Week(s): Location: Reports: Generalized Quality: Reports: Burning Severity: Moderate Improves with: Reports: None Worsens with: Reports: None Throat Pain Score (Numeric/FACES): 6 Bladder Pain Score (Numeric/FACES): 9 - Related Data Allergies Allergy/AdvReac Type Severity Reaction Status Date / Time No Known Allergies Allergy Verified 06/28/20 12:36 Home Meds: Home Meds hydrOXYzine HCL [hydrOXYzine] 25 mg PO DAILY 05/26/19 [History] fentaNYL [Duragesic] 75 mcg TD Q72H 06/27/19 [History] Hydrocodone/Acetaminophen [Hydrocodone-Acetamin 10-325 mg] 1.5 tab PO Q6H PRN 01/19/20 [History] Levonorgestrel/Ethin.estradiol [Lillow-28 Tablet] 1 tab PO DAILY 01/19/20 [History] Past Medical History HEENT History: Reports: None Cardiovascular History: Reports: None Respiratory History: Reports: None Gastrointestinal History: Reports: None Genitourinary History: Reports: Other (See Below) Other Genitourinary History: End Stage Intersitial Cystitis 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 Musculoskeletal History: Reports: Back Pain, Chronic Neurological History: Reports: None Psychiatric History: Reports: None Endocrine/Metabolic History: Reports: None Hematologic History: Reports: Other (See Below) Other Hematologic History: autoimmune disorder Oncologic (Cancer) History: Reports: None Dermatologic History: Reports: None - Past Surgical History Musculoskeletal Surgical History: Reports: Other (See Below) Other Musculoskeletal Surgeries/Procedures:: 4 back surgeries, 2018 spinal infection Social & Family History - Family History Family Medical History: No Pertinent Family History - Caffeine Use Caffeine Use: Reports: None - Living Situation & Occupation Living situation: Reports: , with Family ED ROS ENT - Review of Systems Review Of Systems: Comprehensive ROS is negative, except as noted in HPI. ED EXAM, ENT - Physical Exam Exam: See Below Exam Limited By: No Limitations General Appearance: Alert, No Apparent Distress Eye Exam: Bilateral Eye: PERRL Ears: Normal External Exam, Normal Canal, Hearing Grossly Normal, Normal TMs Nose: Nasal Swelling Mouth/Throat: Normal Inspection, Normal Gums, Normal Lips, Normal Oropharynx, Normal Teeth Head: Atraumatic, Normocephalic Neck: Normal Inspection Respiratory/Chest: No Respiratory Distress, Lungs Clear, Normal Breath Sounds, No Accessory Muscle Use, Chest Non-Tender Cardiovascular: Normal Peripheral Pulses, Regular Rate, Rhythm, No Edema, No Gallop, No JVD, No Murmur, No Rub GI/Abdominal: Normal Bowel Sounds, Soft, Non-Tender, No Organomegaly, No Distention, No Abnormal Bruit, No Mass (Female) Exam: Deferred Rectal (Female) Exam: Deferred Extremities: Normal Inspection, Normal Range of Motion, Non-Tender, No Pedal Edema, Normal Capillary Refill Neurological: Alert, Oriented, CN II-XII Intact, Normal Cognition, Normal Gait, Normal Reflexes, No Motor/Sensory Deficits Psychiatric: Anxious Skin: Warm, Dry, Intact, Normal Color, No Rash Course - Re-Assessments/Exams Free Text/Narrative Re-Assessment/Exam: 09/08/20 13:22 Pt began having a panic and states something is wrong with her. Dispite offering pt medications to help with her anxiety and despite not having the results yet from the current work-up, pt left AMA. Departure - Departure Time of Disposition: 13:24 Disposition: Against Medical Advice 07 Clinical Impression: Throat pain in adult - Discharge Information Forms: ED Department Discharge Sepsis Event Note (ED) - Evaluation Sepsis Screening Result: No Definite Risk <June Proctor - Last Filed: 09/08/20 13:25> ED HPI GENERAL MEDICAL PROBLEM - History of Present Illness Onset: Gradual Course - Vital Signs Last Recorded V/S: Last Vital Signs Temp 98 F 09/08/20 12:14 Pulse 91 09/08/20 12:14 Resp 16 09/08/20 12:14 BP 95/60 09/08/20 12:14 Pulse Ox 97 09/08/20 12:14 - Orders/Labs/Meds Orders: Active Orders 24 hr Category Date Time Status DRUG SCREEN URINE BIORAD [URCHEM] Stat Lab 09/08/20 12:46 Ordered STREP SCRN A RAPID W CULT CONF [RM] Stat Lab 09/08/20 12:17 Ordered UA RFX DEBRA AND CULT IF INDIC [URIN] Stat Lab 09/08/20 12:28 Ordered Labs: Laboratory Tests 09/08/20 09/08/20 09/08/20 Range/Units 12:10 12:30 12:30 WBC 8.1 (5.0-10.0) 10^3/uL RBC 4.91 (4.2-5.4) 10^6/uL Hgb 15.0 D (12.0-16.0) g/dL Hct 45.8 (37.0-47.0) % MCV 93.3 (80-100) fL MCH 30.5 (27.0-34.0) pg MCHC 32.8 L (33.0-35.0) g/dL Plt Count 342 (150-450) 10^3/uL Neut % (Auto) 76.0 H (42.2-75.2) % Lymph % (Auto) 19.9 L (20.5-50.1) % [place] % (Auto) 3.8 (2-8) % Eos % (Auto) 0.1 L (1.0-3.0) % Baso % (Auto) 0.2 (0.0-1.0) % Sodium 138 (136-145) mmol/L Potassium 3.9 (3.5-5.1) mmol/L Chloride 101 (98-107) mmol/L Carbon Dioxide 26 (21-32) mmol/L Anion Gap 14.9 H (7-13) mEq/L BUN 18 (7-18) mg/dL Creatinine 0.84 (0.55-1.02) mg/dL Est Cr Clr Drug Dosing TNP Estimated GFR (MDRD) > 60 BUN/Creatinine Ratio 21.4 (No establ ref range) Glucose 109 H (70-99) mg/dL Lactic Acid (0.4-2.0) mmol/L Calcium 8.9 (8.5-10.1) mg/dL Phosphorus (2.6-4.7) mg/dL Magnesium (1.8-2.4) mg/dL Total Bilirubin 0.6 (0.2-1.0) mg/dL AST 14 L (15-37) U/L ALT 16 (14-59) U/L Alkaline Phosphatase 76 (46-116) U/L Total Protein 7.6 (6.4-8.2) g/dL Albumin 4.1 (3.4-5.0) g/dL Globulin 3.5 Albumin/Globulin Ratio 1.2 Free T4 (0.76-1.46) ng/dL TSH, Ultra Sensitive (0.36-3.74) uIU/mL Influenza Type A RNA Negative (NEGATIVE) Influenza Type B RNA Negative (NEGATIVE) SARS-CoV-2 RNA (RYAN) Negative (NEGATIVE) 09/08/20 09/08/20 Range/Units 12:30 12:30 WBC (5.0-10.0) 10^3/uL RBC (4.2-5.4) 10^6/uL Hgb (12.0-16.0) g/dL Hct (37.0-47.0) % MCV (80-100) fL MCH (27.0-34.0) pg MCHC (33.0-35.0) g/dL Plt Count (150-450) 10^3/uL Neut % (Auto) (42.2-75.2) % Lymph % (Auto) (20.5-50.1) % [place] % (Auto) (2-8) % Eos % (Auto) (1.0-3.0) % Baso % (Auto) (0.0-1.0) % Sodium (136-145) mmol/L Potassium (3.5-5.1) mmol/L Chloride (98-107) mmol/L Carbon Dioxide (21-32) mmol/L Anion Gap (7-13) mEq/L BUN (7-18) mg/dL Creatinine (0.55-1.02) mg/dL Est Cr Clr Drug Dosing Estimated GFR (MDRD) BUN/Creatinine Ratio (No establ ref range) Glucose (70-99) mg/dL Lactic Acid 1.8 (0.4-2.0) mmol/L Calcium (8.5-10.1) mg/dL Phosphorus 3.6 (2.6-4.7) mg/dL Magnesium 2.0 (1.8-2.4) mg/dL Total Bilirubin (0.2-1.0) mg/dL AST (15-37) U/L ALT (14-59) U/L Alkaline Phosphatase (46-116) U/L Total Protein (6.4-8.2) g/dL Albumin (3.4-5.0) g/dL Globulin Albumin/Globulin Ratio Free T4 0.75 L (0.76-1.46) ng/dL TSH, Ultra Sensitive 0.65 (0.36-3.74) uIU/mL Influenza Type A RNA (NEGATIVE) Influenza Type B RNA (NEGATIVE) SARS-CoV-2 RNA (RYAN) (NEGATIVE) - Re-Assessments/Exams Free Text/Narrative Re-Assessment/Exam: 09/08/20 13:25 I personally performed or re-performed the physical examination and medical decision making. I have verified all student documentation or findings, including history, physical exam and/or medical decision making. Departure - Discharge Information *PRESCRIPTION DRUG MONITORING PROGRAM REVIEWED*: No *COPY OF PRESCRIPTION DRUG MONITORING REPORT IN PATIENT CRISSY: No Sepsis Event Note (ED) - Focused Exam Vital Signs: Vital Signs Temp Pulse Resp BP Pulse Ox 09/08/20 12:14 98 F 91 16 95/60 97
[2020-09-08 12:58] LABS: ANION GAP 14.9 mEq/L (7-13); CHLORIDE,CL 101 mmol/L (98-107); SODIUM,NA 138 mmol/L (136-145)
[2020-09-08 13:08] LABS: CORONAVIRUS COVID-19 NAA NEGATIVE (NEGATIVE)
== END 2020-09-08 13:26 | disposition left against medical advice (07) ==
LOC: DL.ED 11:59
DX: R07.0 Pain in throat (principal); Z20.822 Contact with and (suspected) exposure to COVID-19
CPT/HCPCS: 0240U; 36415; 80053; 83605; 83735; 84100; 84439; 84443; 85025; 87081; 87430; 99282; 99283

== ENCOUNTER 2022-08-07 09:49 | Emergency (ER) | payer MEDICARE, BC ==
[2022-08-07 10:27] VITALS: BP 144/103; PULSE 82
[2022-08-07] MEDS ORDERED: Ondansetron 4 MG/2 ML SDV IVPUSH ONE (10:44)
[2022-08-07] MEDS ORDERED: Sodium Chloride 0.9% 1,000 ML IV ONE (10:44)
[2022-08-07] MEDS ORDERED: HYDROmorphone 1 MG/ML Syringe IVPUSH ONE (10:44)
[2022-08-07] MEDS ORDERED: fentaNYL 100 MCG/2 ML SDV IVPUSH ONE ×2 (11:35→12:20)
== END 2022-08-07 12:53 | disposition home or self-care (01) ==
LOC: DL.ED 09:49
DX: N30.10 Interstitial cystitis (chronic) without hematuria (principal); E86.0 Dehydration; R11.2 Nausea with vomiting, unspecified; G89.29 Other chronic pain; Z79.899 Other long term (current) drug therapy
CPT/HCPCS: 36415; 80053; 83735; 85025; 96361; 96374; 96375; 96376; 99283; 99284; J1170; J2405; J3010; J7030

== ENCOUNTER 2022-09-02 15:07 | Emergency (ER) | payer MEDICARE, BC ==
[2022-09-02] MEDS ORDERED: fentaNYL 50 MCG/HR Transdermal Patch TRDERM SCH (17:30)
[2022-09-02 18:24] VITALS: BP 122/74; PULSE 118
== END 2022-09-02 18:16 | disposition home or self-care (01) ==
LOC: DL.ED 15:07
DX: G89.29 Other chronic pain (principal); M54.50 Low back pain, unspecified
CPT/HCPCS: 99283

== ENCOUNTER → 2023-03-19 09:12 | Emergency (ER) | payer MEDICARE, BC ==
[~2023-03-19 09:12] MED LIST: Ketorolac 30 MG/ML SDV IVPUSH ONE; Ondansetron 4 MG/2 ML SDV IVPUSH ONE; Sodium Chloride 0.9% 1,000 ML IV SCH; Sodium Chloride 0.9% 10 ML Syringe FLUSH PRN
[2023-03-19 09:46] VITALS: BP 140/85; PULSE 140
[2023-03-19 09:57] LABS: BASOPHILS PERCENT AUTO 0.2 % (0.0-1.0); EOSINOPHILS PERCENT AUTO 0.1 % (1.0-3.0); HEMATOCRIT 40.3 % (37.0-47.0); HEMOGLOBIN 13.3 g/dL (12.0-16.0); LYMPHOCYTES PERCENT AUTO 11.8 % (20.5-50.1); NEUTROPHILS PERCENT AUTO 83.9 % (42.2-75.2); PLATELET COUNT,PLT 422 10^3/uL (150-450); RED BLOOD CELL COUNT 4.58 10^6/uL (4.2-5.4); WHITE BLOOD CELL COUNT,WBC 9.8 10^3/uL (5.0-10.0)
[2023-03-19 10:19] LABS: A/G RATIO 1.1; ANION GAP 15.9 mEq/L (7-13); BILIRUBIN TOTAL 0.3 mg/dL (0.2-1.0); BUN/CREATININE RATIO 9.4 (No establ ref range); CALCIUM 9.2 mg/dL (8.5-10.1); CREATININE 0.85 mg/dL (0.55-1.02); EST CRCL DRUG DOSING (CG) 99.09 mL/min; POTASSIUM,K 3.9 mmol/L (3.5-5.1); PROTEIN TOTAL,TP 7.7 g/dL (6.4-8.2)
== END | disposition home or self-care (01) ==
LOC: DL.ED 09:12
DX: G89.29 Other chronic pain (principal); M54.2 Cervicalgia; M54.50 Low back pain, unspecified; Z91.048 Other nonmedicinal substance allergy status
CPT/HCPCS: 36415; 72125; 72131; 80053; 83605; 85025; 87040; 96361; 96374; 96375; 99284; J1885; J2405; J7030; J3490